=== PATIENT | female | born 1950 | race Caucasian/White ===

== ENCOUNTER → 2017-01-28 | Outpatient (CLI) | payer MEDICARE, OTHER ==
[~2017-01-28] MED LIST: ASPI-587 PO; CATHETER FLUSH 10 ML SYR IV PRN; FLEC50TA2 PO; HYDR-3729 PO; IOHEXOL 350 MG/ML 100 ML (OMNIPAQUE 350) VIAL IV ONE; MELO-195 PO; NS 100 ML (IVPB) BAG IV ONE; TRIA1CAP4 PO; VENL37.513 PO
[2017-01-28 10:56] LABS: BLOOD UREA NITROGEN 21 MG/DL (7-18); BUN/CREATININE RATIO 26; CREATININE SERUM 0.81 MG/DL (0.60-1.30); GFR ESTIMATED > 60
[2017-01-28 11:20] LABS: THYROID STIMULATING HORMONE 0.85 UIU/ML (0.35-4.94)
--- NOTE | 2017-01-28 13:36 | Diagnostic Imaging Report ---
PROCEDURE: CT neck soft tissue with contrast. TECHNIQUE: Multiple contiguous axial images were obtained through the neck after the administration of contrast. INDICATION: Thyroid nodules, history of right mucoepidermoid carcinoma of the parotid. COMPARISON: The previous CT neck exam performed on 07/21/2016 failed to show any discrete mass within the thyroid gland. The thyroid gland did not seem to be enlarged either. The subcentimeter nodules in both lobes of the thyroid seen on the thyroid ultrasound exam performed on 07/21/2016 were not visible on the previous CT. FINDINGS: On this study, the appearance of the thyroid gland is stable when compared to the prior study. No new abnormality has developed. The gland is not seen to be enlarged either. The subcentimeter thyroid nodules seen on the thyroid ultrasound exam performed in conjunction with this study are not well appreciated on this exam. 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 The postsurgical changes involving the right parotid region seen on the previous study are again evident and no different. There is no sign of a mass in this area to suggest recurrent malignancy. The left parotid gland is unremarkable and the submandibular glands are fairly symmetrical in appearance. There is no mass or adenopathy involving the neck. The tracheal air shadow is not compressed or deviated. The lung apices and intracranial contents, where visualized are unremarkable for an acute abnormality. The postsurgical changes consistent with fusion of C5 and C6 seen previously are again noted and no different. There is no acute bony abnormality appreciated. IMPRESSION: 1. The appearance of the neck is stable when compared to the prior exam. Specifically, the thyroid gland is not enlarged and there is no focal mass greater than 1 cm involving the thyroid gland. There is no sign of a mass in the right parotid fossa to suggest recurrent neoplasm either. 2. If clinical concern regarding an underlying malignant process persists and further imaging is desired, PET/CT would be recommended. Dictated by: Dictated on workstation # [id number]
--- NOTE | 2017-01-28 16:57 | Diagnostic Imaging Report ---
PROCEDURE: US Thyroid. TECHNIQUE: Multiple real-time grayscale images were obtained of the thyroid in various projections. INDICATION: Thyroid nodule. FINDINGS: The thyroid ultrasound exam performed on 07/21/2016 noted a small 0.4 x 0.4 x 0.3 cm hypoechoic nodule in the left lobe of thyroid. That finding appeared stable on the subsequent thyroid ultrasound exam of 07/21/2016. The previous study also showed a few small (0.3 cm or less) hypoechoic lesions in the right lobe of thyroid. On this exam, the small nodules in both lobes of thyroid are again evident and do not seem to have changed significantly. No new nodule has developed and the overall size of the gland is stable when compared to the previous study. The right lobe measures 5.2 x 1.1 x 1.8 cm while the left lobe is estimated to be 4.6 x 1.4 x 1.5 cm. On the prior exam the right lobe measures 5.2 x 1.1 x 1.8 cm and the left lobe is estimated to be 4.6 x 1.4 x 1.5 cm. IMPRESSION: 1. When compared to the previous study, there has been no significant change. The subcentimeter hypoechoic areas within both lobes of thyroid appear stable. 2. Reportedly, CT of the neck is pending for further study. Dictated by: Dictated on workstation # [id number]
== END ==
LOC: RAD 10:16
PROVIDERS: ATTEND Otolaryngology Otolaryngology/Facial Plastic Surgery
DX: E04.1 Nontoxic single thyroid nodule (principal); Z85.818 Personal history of malignant neoplasm of other sites of lip, oral cavity, and pharynx
CPT/HCPCS: 36415; 70491; 76536; 82565; 84439; 84443; 84520

== ENCOUNTER → 2018-03-15 | Outpatient (CLI) | payer MEDICARE, OTHER ==
[~2018-03-15] MED LIST changes: -CATHETER FLUSH 10 ML SYR IV PRN; -NS 100 ML (IVPB) BAG IV ONE; +NS 250 ML (IVPB) BAG IV ONE
[2018-03-15 07:52] LABS: BUN/CREATININE RATIO 27; CREATININE SERUM 0.78 MG/DL (0.60-1.30); GFR ESTIMATED > 60
--- NOTE | 2018-03-15 08:43 | Diagnostic Imaging Report ---
PROCEDURE: US Thyroid. TECHNIQUE: Multiple real-time grayscale images were obtained of the thyroid in various projections. Left thyroid nodule, followup. Comparison is made to prior thyroid ultrasound from 01/28/2017. The right lobe of the thyroid measures 5.0 x 1.8 x 1.7 cm and the left lobe measures 4.7 x 1.5 x 1.7 cm. Small hypoechoic nodule left lobe of thyroid is stable at 4 mm. No dominant thyroid mass is detected. No definite nodules in the right lobe are identified on today's exam. Isthmus is 2 mm in thickness. IMPRESSION: Stable subcentimeter left lobe thyroid nodule when compared to examination one year earlier. No dominant thyroid mass is detected. Dictated by: Dictated on workstation # [id number]
--- NOTE | 2018-03-15 09:40 | Diagnostic Imaging Report ---
PROCEDURE: CT neck soft tissue with contrast. TECHNIQUE: Multiple contiguous axial images were obtained through the neck after the administration of contrast. INDICATION: Right parotid carcinoma. COMPARISON: Prior CT from 01/28/2017. FINDINGS: The visualized intracranial structures are unremarkable. The posterior nasopharynx and oropharynx are unremarkable. The epiglottis and larynx are unremarkable. No discrete thyroid mass is identified by CT. Post surgical changes to the right parotid gland with resection are again noted. No definite residual or recurrent mass is identified at the right parotid bed. The left parotid gland is unremarkable. The submandibular glands are symmetric bilaterally. No definite pathologically enlarged cervical lymph nodes are present. The lung apices are clear. IMPRESSION: Continued stable CT of the neck with contrast when compared to the examination from 01/28/2017. No residual or recurrent neoplasm or evidence of cervical lymphadenopathy is identified. Dictated by: Dictated on workstation # [id number]
== END ==
LOC: RAD 07:13
PROVIDERS: ATTEND Otolaryngology Otolaryngology/Facial Plastic Surgery
DX: E04.1 Nontoxic single thyroid nodule (principal); Z85.858 Personal history of malignant neoplasm of other endocrine glands
CPT/HCPCS: 36415; 70491; 76536; 82565; 84520

== ENCOUNTER → 2019-03-09 | Outpatient (CLI) | payer MEDICARE, OTHER ==
[~2019-03-09] MED LIST changes: +CATHETER FLUSH 10 ML SYR IV PRN; +HOLD METFORMIN - RECEIVED CONTRAST 20 ML VIAL IV SCH; +NS 100 ML (IVPB) BAG IV ONE; -NS 250 ML (IVPB) BAG IV ONE
[2019-03-09 09:26] LABS: BUN/CREATININE RATIO 21; GFR ESTIMATED > 60
--- NOTE | 2019-03-09 11:20 | Diagnostic Imaging Report ---
PROCEDURE: CT neck soft tissue with contrast. TECHNIQUE: Multiple contiguous axial images were obtained through the neck after the administration of contrast. Auto Exposure Controls were utilized during the CT exam to meet ALARA standards for radiation dose reduction. INDICATION: Parotid gland carcinoma, followup. COMPARISON: Correlation is made with prior CT neck study from 03/15/2018. FINDINGS: Postsurgical changes in the right neck with resection of the right parotid gland is again noted. No residual or recurrent mass is identified. The left parotid gland is unremarkable. No cervical lymphadenopathy is seen. Posterior nasopharynx, oropharynx and larynx are unremarkable. Thyroid is unremarkable. No fluid collections are seen. IMPRESSION: Stable CT neck with contrast when compared with study from one year earlier. No residual or recurrent mass in the right parotid bed or evidence of neck lymphadenopathy is detected. Dictated by: Dictated on workstation # [id number]
--- NOTE | 2019-03-09 11:57 | Diagnostic Imaging Report ---
PROCEDURE: US Thyroid. TECHNIQUE: Multiple real-time grayscale images were obtained of the thyroid in various projections. INDICATION: History of right parotid gland carcinoma. COMPARISON: Correlation is made with prior thyroid ultrasound from 03/15/2018. FINDINGS: Right lobe of the thyroid measures 5.7 x 1.7 x 2.3 cm and left lobe measures 5.2 x 1.7 x 1.6 cm. Small hypoechoic nodule in the upper pole of the left lobe measures 5 mm, stable when compared with prior study. No new thyroid mass is detected. IMPRESSION: Stable thyroid ultrasound when compared with examination one year earlier. Dictated by: Dictated on workstation # [id number]
== END ==
LOC: RAD 08:56
PROVIDERS: ATTEND Otolaryngology Otolaryngology/Facial Plastic Surgery
DX: C07 Malignant neoplasm of parotid gland (principal); E04.1 Nontoxic single thyroid nodule; Z98.890 Other specified postprocedural states
CPT/HCPCS: 36415; 70491; 76536; 82565; 84520

== ENCOUNTER 2019-03-16 05:36 | Outpatient (CLI) | payer MEDICARE, OTHER ==
[~2019-03-16] VITALS: Ht 177.8 cm; Wt 133.8 kg
[~2019-03-16 05:36] MED LIST changes: -CATHETER FLUSH 10 ML SYR IV PRN; -HOLD METFORMIN - RECEIVED CONTRAST 20 ML VIAL IV SCH; -IOHEXOL 350 MG/ML 100 ML (OMNIPAQUE 350) VIAL IV ONE; -NS 100 ML (IVPB) BAG IV ONE
[2019-03-16] MEDS ORDERED: OXYB5TAB9 PO (11:06)
[2019-03-16] MEDS ORDERED: MELO15TA39 PO (11:06)
[2019-03-16] MEDS ORDERED: ALLO100T PO (11:06)
[2019-03-16] MEDS ORDERED: TRIA1CAP PO (11:08)
[2019-03-16] MEDS ORDERED: VNL37.5T PO (11:08)
[2019-03-16] MEDS ORDERED: FLEC50TA PO (11:08)
== END 2019-03-16 12:19 | disposition home or self-care (01) ==
LOC: PREOP 05:36
PROVIDERS: ATTEND Surgery
DX: Z01.818 Encounter for other preprocedural examination (principal)

== ENCOUNTER → 2021-04-04 | Outpatient (CLI) | payer MEDICARE, OTHER ==
[~2021-04-04] MED LIST changes: +ALLO100T PO; +FLEC50TA PO; +MELO15TA39 PO; +OXYB5TAB13 PO; +TRIA1CAP PO; +VNL37.5T PO
--- NOTE | 2021-04-04 12:26 | Diagnostic Imaging Report ---
PROCEDURE: US Thyroid. TECHNIQUE: Multiple real-time grayscale images were obtained of the thyroid in various projections. INDICATION: Thyroid nodule The previous thyroid ultrasound exam performed on 03/09/2019 noted a small 5 mm hypoechoic nodule in the superior pole of the left lobe. This finding seems stable when compared to the prior exam of 03/15/2018. On this study, that hypoechoic nodule is again evident and does not appear to have changed adversely. In fact it measures only approximately 3 mm at this time. However in the interval since the prior exam, a few even smaller hypoechoic nodules have developed in both lobes of the thyroid. There is also now a 4 x 3 x 4 mm hypoechoic nodule in the inferior pole of the right lobe. These nodules have a generally benign appearance. Even so, as they have developed in the interval since the prior exam, it may prove worthwhile to have a short-term (6 month) follow-up thyroid ultrasound exam for further study. The thyroid gland itself is not enlarged. The right lobe measures 4.9 x 1.3 x 1.9 cm. The left lobe is estimated at 4.5 x 1.1 x 1.7 cm (normal gland size 4-5 x 2 x 2 cm or less). IMPRESSION: The small hypoechoic nodule in the left lobe of the thyroid seen previously is again evident and does measure slightly smaller than on the prior exam. However, several new subcentimeter hypoechoic nodules have developed in both lobes. These nodules have a generally benign appearance. Even so, a short-term (6 month) follow-up thyroid ultrasound exam would be recommended. Dictated by: Dictated on workstation # [id number]
== END ==
LOC: RAD FS 10:47
PROVIDERS: ATTEND Otolaryngology Otolaryngology/Facial Plastic Surgery
DX: E04.2 Nontoxic multinodular goiter (principal)
CPT/HCPCS: 76536

== ENCOUNTER → 2021-05-14 | Outpatient (CLI) | payer MEDICARE, OTHER | LOC: LABNPT 15:17 | PROVIDERS: ATTEND Family Medicine | DX: N39.0 Urinary tract infection, site not specified (principal) | CPT/HCPCS: 87077; 87088; 87186 ==

== ENCOUNTER 2021-05-18 17:50 | Emergency (ER) | payer MEDICARE, OTHER ==
--- NOTE | 2021-05-18 18:22 | Diagnostic Imaging Report ---
EXAMINATION: Right wrist radiographs, 3 views. COMPARISON: None. HISTORY: 18-year-old female, fall. Wrist pain. 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 There is a questionable fracture of the ulnar aspect of the base of the trapezium on the oblique image 2. There is no otherwise identified potential acute fracture. There is no identified radiopaque foreign body. IMPRESSION: 1. Potential mildly displaced intrajugular fracture involving the ulnar aspect of the base of the trapezium. This may be better evaluated with dedicated CT wrist without contrast. 2. Advanced triscaphe arthritis. Dictated by: Dictated on workstation # [id number]
--- NOTE | 2021-05-18 18:30 | ED Upper Extremity ---
General Chief Complaint: Upper Extremity Stated Complaint: RIGHT WRIST INJ Nursing Triage Note: Fall from ground level approx 30 minutes prior to arrival. Is complaining of R wrist pain rated at 9/10 with movement. No pain meds prior to arrival. Has ice bag on wrist. Also having mild bilat knee pain. Source: patient History of Present Illness Date Seen by Provider: May 18, 2021 Time Seen by Provider: 18:00 Initial Comments Patient is a 71-year-old right-handed female who presents with persistent right wrist pain after falling in landing on her right outstretched arm 30 minutes prior to ED arrival. Patient states she tripped. Pain is rated 10 out of 10 is worse with movement. No med pain medications taken prior to ED arrival. Patient also complained of mild pain to bilateral knees. History of bilateral carpal tunnel surgery. No other injuries or pain complaints. Onset: just prior to arrival Pain/Injury Location: right wrist Method of Injury: direct blow Modifying Factors: Improves With Cold Therapy Allergies and Home Medications Allergies Coded Allergies: adenosine (Verified Allergy, Severe, QUIT BREATHING/PASSED OUT, 03/16/19) shellfish derived (Verified Allergy, Severe, LIPS SWELL, 03/16/19) Sulfa (Sulfonamide Antibiotics) (Verified Allergy, Unknown, 05/18/21) Home Medications Allopurinol 100 Mg Tablet, 200 MG PO DAILY, (Reported) Flecainide Acetate 50 Mg Tablet, 50 MG PO BID, (Reported) Meloxicam 15 Mg Tablet, 15 MG PO DAILY, (Reported) Oxybutynin Chloride 5 Mg Tablet, 5 MG PO DAILY, (Reported) Triamterene/Hydrochlorothiazid 1 Each Capsule, 1 EACH PO DAILY, (Reported) Venlafaxine HCl 37.5 Mg Tab, 37.5 MG PO BID, (Reported) Patient Home Medication List Home Medication List Reviewed: Yes Review of Systems Constitutional: see HPI EENTM: see HPI Musculoskeletal: joint swelling Past Ehvipjx-Zzvvfl-Khbdzk Hx Patient Social History Tobacco Use?: No Smoking Status: Never a Smoker Substance use?: No Alcohol Use?: No Pt feels they are or have been: No Immunizations Up To Date First/Initial COVID19 Vaccinat: 01/13 Second COVID19 Vaccination Michael: 02/13 COVID19 Vaccine Trade [employer]almer: moderna Seasonal Allergies Seasonal Allergies: No Past Medical History Surgeries: Yes (CERVICAL FUSION, GASTRIC BYPASS, BILAT CTR-RIGHT X2, R TKR) Respiratory: Yes Cardiac: Yes Neurological: No Sexually Transmitted Disease: No HIV/AIDS: No Genitourinary: No Gastrointestinal: No Musculoskeletal: Yes Endocrine: No Loss of Vision: Denies Hearing Impairment: Denies Cancer: No Psychosocial: No Integumentary: No Blood Disorders: No Adverse Reaction/Blood Tranf: No (N/A) Family Medical History Cataracts 19 FATHER Respiratory disorder 19 MOTHER (LUNG CA) No Family History of: AIDS Alcoholism Arthritis Cardiovascular disease Colon cancer Completed stroke Dementia Diabetes mellitus Drug abuse Glaucoma Hypertension Kidney disease Myocardial infarction Parkinson's disease Prostate cancer Psychosocial problem Seizure disorder Thyroid disease Physical Exam Vital Signs Vital Signs - First Documented 05/18/21 17:56 Temp 36.5 Pulse 67 Resp 16 B/P (MAP) 146/87 (106) Pulse Ox 96 Capillary Refill : Less Than 3 Seconds Height, Weight, BMI Height: 5'10.00" Weight: 295lbs. 0.0oz. 133.001748si; 42.3 BMI Method: General Appearance: mild distress Wrist: Yes bone tenderness, Yes limited ROM, Yes soft tissue tenderness, Yes swelling Progress/Results/Core Measures Results/Orders My Orders Orders - EUGENIO MIKE DO Wrist 3 View Right (05/18/21 18:03) Ed Ortho/Other Supplies Order (05/18/21 18:26) Ct Extremity Upper Right Wo (05/18/21 18:26) Vital Signs/I&O 05/18/21 17:56 Temp 36.5 Pulse 67 Resp 16 B/P (MAP) 146/87 (106) Pulse Ox 96 Blood Pressure Mean: 106 Departure Communication (Admissions) Right wrist: Possible nondisplaced fracture of metacarpal. CT right wrist: No acute fracture per radiology report. Patient placed in a wrist immobilizer and instructed to follow-up with PCP for further pain management as needed. Return precautions reviewed. Impression Primary Impression: Right wrist injury Disposition: 01 HOME, SELF-CARE Condition: Against Medical Advice Departure-Patient Inst. Decision time for Depature: 19:04 Referrals: LANDEN LIND MD (PCP/Family) Primary Care Physician Patient Instructions: Wrist Sprain (DC) Add. Discharge Instructions: CT imaging was performed does not show an acute wrist fracture. Advanced arthritis is present. Please wear his splint and apply ice. Take ibuprofen and Tylenol as needed for pain. Follow-up with your PCP as needed for reevaluation. Return to the ED if new or worsening symptoms All discharge instructions reviewed with patient and/or family. Voiced understanding. EUGENIO MIKE DO May 18, 2021 18:29
--- NOTE | 2021-05-18 18:59 | Diagnostic Imaging Report ---
Exam: CT right wrist without contrast. Date: 05/18/2021. Indication: 71-year-old female, fall. Right wrist pain. Comparison: Right wrist radiograph May 18, 2021. Technique: Axial CT images of the right wrist were obtained without contrast. Coronal and sagittal reformats were obtained and provided. All CT scans use one or more of the following dose optimizing techniques: automated exposure control, MA and/or KvP adjustment based on a patient size and exam type, or iterative reconstruction. . 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 There is no identified acute fracture of the trapezium or otherwise identified. There is chondrocalcinosis. Bone mineralization and alignment appears unremarkable. There is no obvious soft tissue abnormality on CT assessment. Impression: 1. No acute fracture of the right wrist with specific attention to the previously questioned abnormality of the trapezium. 2. Advanced triscaphe arthritis. 3. Chondrocalcinosis which has multiple associations including advanced age and calcium pyrophosphate dihydrate deposition disease. Dictated by: Dictated on workstation # [id number]
[2021-05-18 19:14] VITALS: BP 146/87
== END 2021-05-18 19:14 | disposition home or self-care (01) ==
LOC: EDUNIT# 17:50 → ER FS 17:52
DX: S69.91XA Unspecified injury of right wrist, hand and finger(s), initial encounter (principal); W01.0XXA Fall on same level from slipping, tripping and stumbling without subsequent striking against object, initial encounter
CPT/HCPCS: 73110; 73200

== ENCOUNTER → 2021-07-02 | Outpatient (CLI) | payer MEDICARE, OTHER | LOC: LAB FS 10:20 | PROVIDERS: ATTEND Orthopaedic Surgery | DX: Z01.812 Encounter for preprocedural laboratory examination (principal); Z20.822 Contact with and (suspected) exposure to COVID-19 | CPT/HCPCS: 87636 ==